=== PATIENT | female | born 1960 | race Asian ===

== ENCOUNTER 2017-04-08 12:52 | Outpatient (CLI) | payer BC ==
--- NOTE | 2017-04-08 18:35 | NM ---
EXAM: NUCLEAR MEDICINE MUGA SCAN HISTORY: Malignant neoplasm upper inner quadrant right breast. TECHNIQUE: Patient was administered 27 millicuries of tagged red blood cells. Images were obtained in the [place] orientation. FINDINGS: The calculated left ventricular ejection fraction is 70.8%. Previously, the calculated left ventricul ar ejection fraction was 66.2%. IMPRESSION: Left ventricular ejection fraction is 70.8%. POS: RAD[facility]
== END 2017-04-08 12:53 | disposition home or self-care (01) ==
LOC: NM 12:52
PROVIDERS: ATTEND Internal Medicine Medical Oncology
DX: C50.211 Malignant neoplasm of upper-inner quadrant of right female breast (principal); D70.8 Other neutropenia
CPT/HCPCS: 78472; A9604

== ENCOUNTER 2019-11-09 09:11 | Outpatient (CLI) | payer BC ==
--- NOTE | 2019-11-09 10:26 | ULT ---
RENAL ULTRASOUND HISTORY: Chronic kidney disease COMPARISON: None FINDINGS: Right Kidney: Size: 8.7 x 4.3 x 4.5 Abnormality: Normal cortical echotexture. No hydronephrosis. Right renal cortical thickness was 1 cm. Left Kidney: Size: 8.4 x 3.8 x 4.6 Abnormality: Normal cortical echotexture. No hydronephrosis. Left renal cortical thickness was 1.2 cm . Urinary bladder: 20.2 cc IMPRESSION: No hydronephrosis.
== END 2019-11-09 09:12 | disposition home or self-care (01) ==
LOC: SCSULT 09:11
PROVIDERS: ATTEND Internal Medicine Nephrology
DX: N18.1 Chronic kidney disease, stage 1 (principal)
CPT/HCPCS: 76770

== ENCOUNTER 2021-03-08 13:49 | Outpatient (CLI) | payer BC | END 2021-03-08 13:50 | disposition home or self-care (01) | LOC: BICMAMMO 13:49 | PROVIDERS: ATTEND Internal Medicine Medical Oncology | DX: Z13.820 Encounter for screening for osteoporosis (principal); Z85.3 Personal history of malignant neoplasm of breast; M81.0 Age-related osteoporosis without current pathological fracture | CPT/HCPCS: 77066; 77080; G0279 ==

== ENCOUNTER 2022-03-11 13:54 | Outpatient (CLI) | payer BC | END 2022-03-11 13:55 | disposition home or self-care (01) | LOC: BICMAMMO 13:54 | PROVIDERS: ATTEND Internal Medicine Medical Oncology | DX: Z12.31 Encounter for screening mammogram for malignant neoplasm of breast (principal); M81.0 Age-related osteoporosis without current pathological fracture; M85.89 Other specified disorders of bone density and structure, multiple sites; Z98.890 Other specified postprocedural states; Z85.3 Personal history of malignant neoplasm of breast | CPT/HCPCS: 77063; 77067; 77080 ==

== ENCOUNTER 2023-04-11 14:17 | Outpatient (CLI) | payer BC | END 2023-04-11 14:18 | disposition home or self-care (01) | LOC: BICMAMMO 14:17 | PROVIDERS: ATTEND Internal Medicine Medical Oncology | DX: Z12.31 Encounter for screening mammogram for malignant neoplasm of breast (principal); M81.0 Age-related osteoporosis without current pathological fracture; M85.89 Other specified disorders of bone density and structure, multiple sites; Z85.3 Personal history of malignant neoplasm of breast | CPT/HCPCS: 77063; 77067; 77080 ==